=== PATIENT | male | born 1985 | race Caucasian/White ===

== ENCOUNTER 2019-01-14 10:06 | Emergency (ER) | payer OTHER, SELFPAY ==
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
[2019-01-14 10:21] VITALS: BP 129/75; PULSE 61; RESP 18; TEMP 36.3; O2SAT 94; BMI 26.4
== END 2019-01-14 10:40 | disposition home or self-care (01) ==
LOC: ED 10:31
PROVIDERS: Emergency Provider Emergency Medicine
DX: H72.91 Unspecified perforation of tympanic membrane, right ear (principal); Y04.2XXA Assault by strike against or bumped into by another person, initial encounter
CPT/HCPCS: 99282

== ENCOUNTER 2022-04-06 20:50 | Emergency (ER) | payer OTHER, SELFPAY ==
--- NOTE | 2022-04-06 21:11 | ED_ITS ---
HPI - Extremity Injury (Lower) General Chief Complaint: Extremity Injury, Lower Stated Complaint: Smushed left toe Time Seen by Provider: 04/06/22 20:54 History of Present Illness HPI Narrative: 36-year-old male nonsmoker with noncontributory medical history presents with family in the chief complaint of an accidental injury to his left 4th toe just prior to arrival. He was moving a ladder and accidentally set it on his foot and suffered a painful injury including bruising of his toe. He denies any numbness, tingling or weakness. Denies any bleeding or break in the skin. He denies other injury. His pain is worse when he ambulates or touches it and improves with rest. Patient History Medical History Patient denies medical problems Social History marital status: lives independently: Yes Smoking Status: Never smoker Smoking Status: Never smoker alcohol intake frequency: 0-2 drinks per day Substance Use Type: does not use Exam Narrative Exam Narrative: GEN: AOx3 and in mild distress EYES: Pupils are equal, round, and reactive to light and accommodation. Extraoccular muscles are intact bilaterally. There is no subconjunctival hemorrhage or exudate. CHEST: Lungs are clear to auscultation bilaterally and free of wheezes, rales, or rhonchi. Heart rate is regular rhythm, there are no murmurs, clicks, rubs, or gallops. There is no chest wall tenderness. ABD: Abdomen is soft and nontender. There is no guarding or rebound. Bowel sounds are normal in all 4 quadrants. There is no mass or organomegaly. EXT: Left 4th toe ecchymotic circumferentially, no subungual hematoma, closed, isolated and neurovascularly intact SKIN: Warm, pink, and dry. No erythema or rash Initial Vital Signs Initial Vital Signs: Vital Signs Temperature 98.4 F 04/06/22 21:13 Pulse Rate 80 04/06/22 21:13 Respiratory Rate 16 04/06/22 21:13 Blood Pressure 161/84 H 04/06/22 21:13 Pulse Oximetry 97 04/06/22 21:13 Oxygen Delivery Method 04/06/22 21:13 Procedures Orthopedic Splinting/Casting Injury #1: Side: left Lower Extremity Injury Location: toe Lower Extremity Immobilizer: post-op shoe Post splinting neuro exam: intact Post splinting vascular exam: intact Placed by: Nursing Course Orders Ordered: ED Orders 04/06/22 21:13 XR toe LT min 2V Stat Vital Signs Vital signs: Vital Signs - 8 hr 04/06/22 21:13 Temperature 98.4 F Pulse Rate 80 Respiratory Rate 16 Blood Pressure 161/84 H Pulse Oximetry 97 Oxygen Delivery Method Room Air MDM - Extremity Injury (Lower) Imaging Data Extremity x-ray #1: Radiologist's Impression: Close Toe X-Ray (Signed) Darrian Pham - 04/06/22 Launch?[address] [address] XRay Report Signed Patient: Zach Conley MR#: [id number] : 1985 Acct:[id number] Age/Sex: 36 / M Date of Service: 04/06/22 Loc: ED Accession Number: [id number] ?? Procedure: XR toe LT min 2V Ordering Provider: Shamir Neff D.O. PROCEDURE:? XR TOE LT MIN 2V ? INDICATIONS:? dropped ladder on 4th digit ? TECHNIQUE:? 2 views of the 4th toe(s) acquired.? ? COMPARISON:? None. ? FINDINGS:? ? Bones:? No dislocations.? No suspicious bony lesions.? On the straight frontal view there appears to be displacement of several bone margins laterally, involving the distal phalanx where overlying soft tissue swelling is prominent? ? Soft tissues:? No suspicious soft tissue densities.? ? IMPRESSION:? Prominent soft tissue swelling to the area of acute trauma with apparent lateral displaced thin bone fragments involving the 4th distal phalanx appear present. ? ? Dictated by: Darrian Pham M.D. on 04/06/2022 at 21:49 ? ? Approved by: Darrian Pham M.D. on 04/06/2022 at 21:51 ? Discharge Plan Departure Patient Disposition: Home Clinical Impression: Closed fracture of toe Instructions: DI for Toe Fracture Activity Restrictions/Additional Instructions: *You have been diagnosed with [left 4th toe fracture] *What to do: *Please continue to take your regular medications as directed. [x] Tylenol and occasional Motrin for pain *Please follow up with [Jania ] of [facility] in 2-3 days, call for an appointment. Let them know you were seen in the Emergency Department and that we ask that you be seen in follow up. We will electronically transmit a record of today's note if your PCP is in our system *Return to Emergency Department if you should have any new, worsening or concerning symptoms, such as [worsening pain, significant swelling, cold extremities, numbness, tingling, weakness or other bothersome symptoms Referrals: Jennie Dykes MD [Physician] - Visit Report Forms: Patient Portal/API
[2022-04-06 21:13] VITALS: BP 161/84; PULSE 80; RESP 16; TEMP 36.9; O2SAT 97; BMI 29.4
--- NOTE | 2022-04-06 21:13 | DI.RAD.S_ITS ---
PROCEDURE: XR TOE LT MIN 2V INDICATIONS: dropped ladder on 4th digit TECHNIQUE: 2 views of the 4th toe(s) acquired. COMPARISON: None. FINDINGS: Bones: No dislocations. No suspicious bony lesions. On the straight frontal view there appears to be displacement of several bone margins laterally, involving the distal phalanx where overlying soft tissue swelling is prominent Soft tissues: No suspicious soft tissue densities. IMPRESSION: Prominent soft tissue swelling to the area of acute trauma with apparent lateral displaced thin bone fragments involving the 4th distal phalanx appear present. Dictated by: Darrian Pham M.D. on 04/06/2022 at 21:49 Approved by: Darrian Pham M.D. on 04/06/2022 at 21:51
== END 2022-04-06 22:03 | disposition home or self-care (01) ==
PROVIDERS: Emergency Provider Emergency Medicine
DX: S92.532A Displaced fracture of distal phalanx of left lesser toe(s), initial encounter for closed fracture (principal); W22.8XXA Striking against or struck by other objects, initial encounter
CPT/HCPCS: 73660; 99281; 99283

== ENCOUNTER → 2022-10-25 11:30 | Outpatient (CLI) | payer OTHER, SELFPAY ==
--- NOTE | 2022-10-25 | DI.MRI.S_ITS ---
PROCEDURE: MR SHOULDER RT WO CON INDICATIONS: Impingement syndrome of right shoulder TECHNIQUE: Noncontrast oblique coronal T2 fast spin echo with fat saturation, oblique sagittal T1 spin echo and T2 fast spin echo with fat saturation, axial T1 spin echo and T2 fast spin echo with fat saturation through the shoulder. COMPARISON: None. FINDINGS: Image quality: Excellent. Rotator cuff: Low-grade articular and bursal surface partial thickness tear involving distal supraspinatus at its insertion on the humeral head is seen extending to musculotendinous junction. Distal infraspinatus and subscapularis tendons are intact. No full-thickness rotator cuff tendon rupture. Sagittal images demonstrate no significant rotator cuff muscle atrophy. Bones and bursae: No bone marrow contusions or fractures. Mild acromioclavicular joint osteoarthritic changes are seen with small downward osteophyte formation depressing the musculotendinous junction of supraspinatus. The acromion demonstrates conventional anatomy, without an os acromiale. Trace amount of subacromial subdeltoid bursal fluid is seen. Capsule and soft tissues: There is signal abnormality and contour irregularity involving superior anterior labrum at 12 to 2 o'clock position suggestive of superior anterior labral tear. The long head of the biceps tendon demonstrates normal location and morphology. The rotator interval appears normal, without fibrosis. The coracohumeral ligament is normal in thickness. IMPRESSION: 1. Low-grade articular and bursal surface partial thickness tear involving distal supraspinatus extending to musculotendinous junction. No full-thickness rotator cuff tendon rupture. 2. Mild acromioclavicular joint osteoarthritis. No fracture or dislocation. Trace amount of subacromial subdeltoid bursal fluid. 3. Finding is suggestive of superior anterior labral tear at 12 to 2 o'clock position. Dictated by: Tyrese Del Rio M.D. on 10/25/2022 at 12:41 Approved by: Tyrese Del Rio M.D. on 10/25/2022 at 12:46
== END ==
PROVIDERS: Referring Provider Orthopaedic Surgery; Visit Provider Orthopaedic Surgery
DX: M75.41 Impingement syndrome of right shoulder (principal); M75.111 Incomplete rotator cuff tear or rupture of right shoulder, not specified as traumatic; M19.011 Primary osteoarthritis, right shoulder
CPT/HCPCS: 73221

== ENCOUNTER 2023-02-13 09:23 | Day surgery (SDC) | payer OTHER, SELFPAY ==
[2023-02-05 13:30] VITALS: BMI 32.1
[2023-02-13] VITALS (7 sets, daily range): BP systolic 126–148; BP diastolic 79–90; PULSE 57–80; RESP 14–18; TEMP 36.2–36.6; O2SAT 94–97; BMI 32.1
[2023-02-13] MEDS: LACTATED RINGERS 1,000 ML 42 ML IV (10:19)
--- NOTE | 2023-02-13 11:02 | PM.PREOP ---
Pre-operative Note Interval Note History & Physical reviewed/Exam performed by Physician: Yes Changes to H&P: No
--- NOTE | 2023-02-13 12:21 | SUR.OPER ---
Beach chair with Skytron shoulder positioner. Lower body on padded OR bed. Head in foam padded head cradle, secured with straps. Non-operative arm secured <90 degrees abduction. Pillow under knees. Safety belt at thigh. Cloth tape over blanket over lower legs.
[2023-02-13] MEDS: LIDOCAINE 2% W/EPI INJ 20 ML INJ (12:30)
[2023-02-13] MEDS: SODIUM CHLORIDE IRRIG SOLUTION 3,000 ML, EPINEPHrine 1 MG IRR (12:31)
--- NOTE | 2023-02-13 12:44 | P.OP_ITS ---
Operative Date/Time/Diagnoses Date of procedure: 02/13/23 Time of procedure: 11:30 Pre-op diagnosis: Right SLAP tear as well as partial rotator cuff tear Post-op diagnosis: same Procedure & Clinicians Procedure: Right shoulder arthroscopic biceps tenodesis with extensive debridement and subacromial decompression. Same procedure as scheduled: Yes Indications: Slap tear with partial rotator cuff tear Surgeon: Paulo Christianson Hearing Aid Assembly Supervisor: Alan Lemus Anesthesia Type: General and Peripheral nerve block Operative Notes Findings: Slap tear as well as signs of tearing to the bicipital anchor. No sign of any arthritic changes to the glenohumeral joint. Some mild articular sided partial tearing to the rotator cuff. No sign of any high-grade partial tears. Synovitis and bursitis in the subacromial space with mild partial tearing involving the bursal aspect of the supraspinatus and infraspinatus. No sign of any significant AC joint arthritis. Closure Type: primary Applied: implant(s) (SwiveLock anchor Arthrex) Estimated Blood Loss (mL): 5 Procedure in detail: On date of service, Patient was met in the holding area. The operative site was signed and witnessed by the OR staff. The surgeries once again discussed with the patient and any remaining questions they had were answered fully. Patient was taken back to the operating theater and placed on the operating table in a supine position. Great care was taken to ensure that all bony prominences were properly padded. Patient was then placed into the beach chair position. The head and neck were properly positioned and secured. A timeout was performed verifying patient's name, procedure, and the operative site. The upper extremity was then prepped and draped in the normal sterile fashion. Previously, the bony anatomy and portal sites were marked out as well as injected with Marcaine with epinephrine. An 11 blade was used to make an incision in the posterior aspect of the shoulder. The camera was placed, and a diagnostic shoulder scope was performed. Findings listed above. Next under direct visualization, an anterior portal was established. A shaver was brought in anteriorly and a debridement of the glenohumeral joint was performed. Mainly focusing on some articular sided tearing of the supraspinatus. No sign of any high-grade partial tears. Shaver was then used to debride the labral tear cleaning up the the SLAP tear as well as the tearing to the bicipital anchor. Patient also has some degenerative tearing that was also debrided using the shaver. Patient had synovitis to the anterior aspect of the shoulder which was also debrided using the shaver. Using the anterior portal suture material was passed around the biceps tendon and. The suture was then passed through the eyelet and then pulled back through locking the suture around the biceps. This was then passed underneath the bi ceps tendon and then a pointed grasper was used to pinedo through the biceps tendon out and grab the suture and pull it through providing a loop as well as a cinching fixation of the proximal biceps. Once we were satisfied with the suture repair, the biceps was released at the superior labrum. Shaver was used once again to debride the bicipital anchor as well as any remaining tearing to the superior labrum. We then found a good insertion point just superior to the bicipital sling and the most superior aspect of the bicipital groove. This was done arthroscopically. Punch was used to make a hole and then the anchor was then used to tenodesis the suture into that hole providing a secure fixation of the proximal biceps. Shoulder was taken through range of motion and a probe was used to test the repair and there was no sign of any loosening. Camera was placed in both posterior and anterior portals to exam and bicep tendon as well as shoulder joint to make sure there was no additional debridement that needed to be performed. Next, camera was placed into the subacromial space and a lateral portal was established. Combination of the shaver and vapor Wand were used to debride out the synovitis and bursitis in the subacromial and subdeltoid space. This gave us good visualization of the bursal aspect of the rotator cuff and the shaver was then used to debride the mild partial tearing to the supraspinatus and infraspinatus. No sign of any high-grade partial tears or full-thickness tears. Bur was then used to do a subacromial decompression. Shoulder was taken through range of motion no sign of any residual impingement and no sign of any significant tearing to the rotator cuff. Patient's shoulder was then cleaned dried and dressed and patient was taken to the PACU in stable condition Complications: none Post-operative Condition: stable Disposition: PACU Plan for aftercare: Patient will follow our postoperative protocol for biceps tenodesis.
[2023-02-13] MEDS: LORazepam 2 MG/ML INJ 0.5 MG IV ×2 (13:00→13:08)
--- NOTE | 2023-02-13 18:45 | P.PCN_ITS ---
Peripheral Nerve Block Note Pre-Procedure Reason for block: Attending surgeon request/order for post-op pain management Pre-procedure checklist: Patient examined and chart reviewed, Risks, benefits, alternatives of block discussed, questions answered, Verification of anti- coagulation status, Site confirmed, Timeout performed and Standard ASA monitors applied Consent obtained from: Patient Procedure Date of procedure: 02/13/23 Start Time: 11:20 End Time: 11:25 Performed by: Natasha Harkins Sedation - enter dose in comment field: IV Midazolam (mg) (2mg) and IV Fentanyl (mcg) (100mcg) Location: Pre-Op Position: Supine Laterality: Right Sterile Technique: Sterile barrier maintained, Sterile gloves, Mask, Sterile drapes, U/S probe cover, Chloraprep and Betadine Skin Wheal: Lidocaine 2% mL: 1 Gauge: 27 Equipment Single injection - Needle brand, gauge, length: Single injection- Pajunk, 22G x 50mm Medications Medications - enter concentration (%) & mL in comment field: Ropivacaine (0.5%, 20mls) Incremental aspiration prior to injection: Yes Ultrasound Reason for Ultrasound: U/S guidance used for needle placement and U/S used to visualize spread of anesthetic Image printed/saved/archived: Yes Limited exam reveals no abnormal findings: Yes Vital signs VS: - 02/13/23 12:54 02/13/23 12:58 02/13/23 13:08 Temperature 97.1 F L Pulse Rate 80 70 68 Respiratory Rate 14 16 16 Blood Pressure 148/87 H 143/89 H 143/89 H Pulse Oximetry 95 94 96 Oxygen Delivery Method Room Air Room Air Room Air 02/13/23 13:20 02/13/23 13:23 02/13/23 13:03 Temperature 97.8 F 97.8 F Pulse Rate 71 71 74 Respiratory Rate 17 18 16 Blood Pressure 145/90 H 135/86 140/79 Pulse Oximetry 95 96 95 Oxygen Delivery Method Room Air Room Air Oxygen Delivery Method Room Air Events Nerve Block Events: Procedure uneventful
== END 2023-02-13 13:56 | disposition home or self-care (01) ==
PROVIDERS: Referring Provider Orthopaedic Surgery; Visit Provider Orthopaedic Surgery
PROC: (CPT 29805; principal; 2023-02-13 11:15)
DX: S43.431A Superior glenoid labrum lesion of right shoulder, initial encounter (principal); M75.111 Incomplete rotator cuff tear or rupture of right shoulder, not specified as traumatic; G89.18 Other acute postprocedural pain; M65.811 Other synovitis and tenosynovitis, right shoulder; M75.51 Bursitis of right shoulder
CPT/HCPCS: 29828; 29826; 29823; 64415; J0171; J1100; J2060; J2250; J2405; J2704; J3010

== ENCOUNTER 2023-03-08 09:57 | Emergency (ER) | payer OTHER, SELFPAY ==
[2023-03-08 10:30] VITALS: BP 141/79; PULSE 79; RESP 14; TEMP 36.5; O2SAT 99; BMI 29.9
--- NOTE | 2023-03-08 10:35 | DI.RAD.S_ITS ---
PROCEDURE: XR SHOULDER RT MIN 2V INDICATIONS: recent rotator cuff surgery, felt pop, increased pain + fall TECHNIQUE: 3 views of the shoulder were acquired. COMPARISON: [facility], CR, XR CHEST 1V, 03/08/2023, 10:52. [facility], CR, XR ELBOW RT MIN 3V, 03/08/2023, 10:40. FINDINGS: Bones: No fractures or dislocations. No suspicious bony lesions. Visualized ribs appear intact. Soft tissues: No suspicious soft tissue calcifications. The visualized lung demonstrates an unremarkable appearance. IMPRESSION: Plain film study within normal limits. Dictated by: Miko Cho M.D. on 03/08/2023 at 10:04 Approved by: Miko Cho M.D. on 03/08/2023 at 10:04
--- NOTE | 2023-03-08 10:35 | DI.RAD.S_ITS ---
PROCEDURE: XR ELBOW RT MIN 3V INDICATIONS: recent rotator cuff surgery, felt pop, increased pain + fall TECHNIQUE: 3 views of the elbow were acquired. COMPARISON: [facility], CR, XR CHEST 1V, 03/08/2023, 10:52. [facility], CR, XR SHOULDER RT MIN 2V, 03/08/2023, 10:40. FINDINGS: Bones: No fractures or dislocations. No suspicious bony lesions. Soft tissues: No elbow joint effusion. No suspicious soft tissue calcifications. IMPRESSION: Unremarkable plain films. Dictated by: Miko Cho M.D. on 03/08/2023 at 10:03 Approved by: Miko Cho M.D. on 03/08/2023 at 10:03
--- NOTE | 2023-03-08 10:46 | DI.RAD.S_ITS ---
PROCEDURE: XR CHEST 1V INDICATIONS: chest pain TECHNIQUE: One view of the chest was acquired. COMPARISON: [facility], CR, XR SHOULDER RT MIN 2V, 03/08/2023, 10:40. [facility], CR, XR ELBOW RT MIN 3V, 03/08/2023, 10:40. FINDINGS: Surgical changes and devices: None. Lungs and pleura: An incomplete inspiratory result is noted, causing a crowded appearance to the lung markings. No focal infiltrates are seen. No pneumothorax or significant pleural effusions are seen. Mediastinum: Mediastinal contours appear normal. Heart size is normal. Bones and chest wall: No suspicious bony lesions. Overlying soft tissues appear unremarkable. IMPRESSION: Limited portable chest examination, without a significant cardiopulmonary abnormality identified. Dictated by: Miko Cho M.D. on 03/08/2023 at 10:04 Approved by: Miko Cho M.D. on 03/08/2023 at 10:05
[2023-03-08 11:21] LABS: Add Manual Diff / Slide Review NO; Basophils Absolute Auto 100 /uL (0-100); Basophils Percent Auto 0.7 % (0-2); Eosinophils Absolute Auto 100 /uL (0-450); Eosinophils Percent Auto 1.3 % (2-4); Hematocrit 43.8 % (41-53); Lymphocytes Absolute Auto 1700 /uL (1100-4500); Lymphocytes Percent Auto 17.2 % (25-40); Mean Corpuscular HGB Conc 34.4 % (30-36); Mean Corpuscular Hemoglobin 29.9 PG (26-34); Mean Corpuscular Volume 87.1 fL (80-100); Monocytes Absolute Auto 600 /uL (0-900); Monocytes Percent Auto 6.5 % (3-14); Neutrophils Absolute Auto 7500 /uL (1500-7000); Neutrophils Percent Auto 74.3 % (50-75); Platelet Count 322 X10^3/uL (150-400); Red Blood Cell Count 5.03 X10^6/uL (4.5-5.9)
[2023-03-08 11:30] LABS: Prothrombin Time 11.7 SECONDS (10.1-12.7)
[2023-03-08 11:33] LABS: PTT Partial Thromboplastin Tim 27 SECONDS (26-36)
[2023-03-08 11:35] LABS: Alanine Aminotransferase 36 IU/L (<50); Albumin 4.3 g/dL (3.5-5.0); Albumin Globulin Ratio 1.3 (1.0-2.8); Alkaline Phosphatase 45 U/L (38-126); Aspartate Aminotransferase 24 IU/L (17-59); BUN Creatinine Ratio 17.1 (6-22); Bilirubin Total 0.5 mg/dL (0.2-1.3); Blood Urea Nitrogen 13 mg/dL (9-20); Calcium 9.6 mg/dL (8.4-10.2); Carbon Dioxide 28 mmol/L (22-32); Chloride 103 mmol/L (98-107); Creatine Kinase 75 U/L (55-170); Estimated Glomerular Filt Rate > 60 mL/min (>60); Globulin 3.4 g/dL (1.7-4.1); Glucose 103 mg/dL (70-100); HEMOLYSIS < 15 (0-50); Lipase 70 U/L (23-300); Sodium 138 mmol/L (137-145); Total Protein 7.7 g/dL (6.3-8.2)
[2023-03-08 11:47] LABS: Troponin I < 0.012 ng/mL (0.01-0.034)
[2023-03-08 12:47] VITALS: BP 117/70; PULSE 60; RESP 12; O2SAT 99
--- NOTE | 2023-03-08 13:53 | ED.GENADULT ---
HPI - General Adult General Chief complaint: Syncope Stated complaint: passed out LOC about 5-10 secs Time Seen by Provider: 03/08/23 13:53 Source: patient Mode of arrival: Ambulatory History of Present Illness HPI narrative: 37-year-old gentleman with recent rotator cuff repair and recent diagnosis of hypertension started on lisinopril 10 mg in the evening. This morning he was in the shower became dizzy and had near syncopal episode where he fell. He did not hit his head. He is concerned that he may have re-injured his shoulder and he comes in for further evaluation. He is in a postsurgical rotator cuff splint. He has not recently had any fevers, cough, chills. No vomiting or diarrhea. He has been checking blood pressures after starting the lisinopril and they all seem absolutely appropriate. Related Data Home Medications Medication Instructions Recorded Confirmed famotidine 20 mg tablet 20 mg PO DAILY 02/05/23 02/13/23 Previous Rx's Medication Instructions Recorded hydroxyzine pamoate 25 mg capsule 25 mg PO TID-QID PRN spasms #60 02/13/23 (Vistaril) caps oxycodone-acetaminophen 5 mg-325 2 tab PO Q4-6H PRN pain #60 tabs 02/13/23 mg tablet (Percocet) Allergies Allergy/AdvReac Type Severity Reaction Status Date / Time No Known Drug Allergies Allergy Verified 02/13/23 10:07 Review of Systems Review of Systems Narrative: Pertinent positive and negative findings as per HPI Patient History Medical History Patient denies medical problems Surgical History History of photorefractive keratectomy (PRK) H/O vasectomy Hx of surgical procedure Social History marital status: household members: family lives independently: Yes Smoking Status: Never smoker alcohol intake: never Smoking Status: Never smoker alcohol intake frequency: 0-2 drinks per day Substance Use Type: does not use Exam Initial Vital Signs Initial Vital Signs: Vital Signs Temperature 97.7 F 03/08/23 10:30 Pulse Rate 79 03/08/23 10:30 Respiratory Rate 14 03/08/23 10:30 Blood Pressure 141/79 H 03/08/23 10:30 Pulse Oximetry 99 03/08/23 10:30 Oxygen Delivery Method Room Air 03/08/23 10:30 General: Alert appropriate in no acute distress ENT: No obvious trauma Respiratory: Able to speak in full sentences, no obvious respiratory distress Skin: No obvious rashes, warm and dry Neurologic: Grossly intact no obvious asymmetries or abnormalities Psych: appropriate insight and affect, cooperative Right extremity: Appropriate postsurgical findings he is in a postsurgical sling. Neurovascularly intact Course Orders Ordered: ED Orders 03/08/23 10:35 XR elbow RT min 3V Stat XR shoulder RT min 2V Stat EKG-12 Lead Stat 03/08/23 10:46 XR chest 1V Stat 03/08/23 11:15 Complete Blood Count AUTO DIFF Stat Comprehensive Metabolic Panel Stat Lipase Stat Magnesium Stat PTT Partial Thromboplastin [place] Stat Prothrombin Time INR Stat Troponin & CK Cardiac Panel Stat Vital Signs Vital signs: Vital Signs - 8 hr 03/08/23 10:30 03/08/23 12:47 Temperature 97.7 F Pulse Rate 79 60 Respiratory Rate 14 12 Blood Pressure 141/79 H 117/70 Pulse Oximetry 99 99 Oxygen Delivery Method Room Air Room Air Medical Decision Making Lab Data 03/08/23 11:15 03/08/23 11:15 Labs: Lab Results 03/08/23 Range/Units 11:15 WBC 10.0 (4.5-11.0) X10^3/uL RBC 5.03 (4.5-5.9) X10^6/uL Hgb 15.0 (13.5-17.5) g/dL Hct 43.8 (41-53) % MCV 87.1 (80-100) fL MCH 29.9 (26-34) PG MCHC 34.4 (30-36) % RDW 14.0 (11.6-14.8) % Plt Count 322 (150-400) X10^3/uL Neut % (Auto) 74.3 (50-75) % Lymph % (Auto) 17.2 L (25-40) % Douglas % (Auto) 6.5 (3-14) % Eos % (Auto) 1.3 L (2-4) % Baso % (Auto) 0.7 (0-2) % Neut # (Auto) 7500 H (7281-6557) /uL Lymph # (Auto) 1700 (0505-6787) /uL Douglas # (Auto) 600 (0-900) /uL Eos # (Auto) 100 (0-450) /uL Baso # (Auto) 100 (0-100) /uL PT 11.7 (10.1-12.7) SECONDS INR 1.0 (0.9-1.3) APTT 27 (26-36) SECONDS Sodium 138 (137-145) mmol/L Potassium 4.0 (3.4-5.1) mmol/L Chloride 103 (98-107) mmol/L Carbon Dioxide 28 (22-32) mmol/L BUN 13 (9-20) mg/dL Creatinine 0.76 (0.66-1.25) mg/dL Estimated GFR > 60 (>60) mL/min BUN/Creatinine Ratio 17.1 (6-22) Glucose 103 H (70-100) mg/dL Calcium 9.6 (8.4-10.2) mg/dL Magnesium 2.0 (1.6-2.3) mg/dL Total Bilirubin 0.5 (0.2-1.3) mg/dL AST 24 (17-59) IU/L ALT 36 (<50) IU/L Alkaline Phosphatase 45 (38-126) U/L Total Creatine Kinase 75 (55-170) U/L Troponin I < 0.012 (0.01-0.034) ng/mL Total Protein 7.7 (6.3-8.2) g/dL Albumin 4.3 (3.5-5.0) g/dL Globulin 3.4 (1.7-4.1) g/dL Albumin/Globulin Ratio 1.3 (1.0-2.8) Lipase 70 (23-300) U/L [facility] Narrative Medical decision making narrative: CC: Near-syncope with fall Complicating co-morbidities: Recent right rotator cuff surgery Data collected from: patient, Differential considered: Vasovagal syncope, cardiac syncope, blood loss, injury to the shoulder Exam documented above, pertinent findings include: Normal postoperative exam of his right shoulder and upper extremity. No obvious new injuries. Remainder of exam is benign Lab Test results independently reviewed as above. Pertinent findings: CBC is unremarkable PT, PTT and INR are all appropriate Chemistries show no obvious abnormalities Independently reviewed EKG Sinus rhythm at a rate of 67. Normal intervals, normal axis. No acute ischemic changes Imaging studies independently reviewed: Chest, shoulder and elbow x-ray are all unremarkable Discussion: 37-year-old man with a near syncopal episode falling in the shower secondary to this. No immediate trauma, no head injury. No evidence of internal bleeding. Findings reviewed and reassurance is given. I do not suspect any other significant pathology at this time. Blood pressure was 125/80 at time of discharge. He had questions about continuing his 10 mg of lisinopril at night which I believe is appropriate particularly given the blood pressure readings that he has from home which are all consistently in the 120-130 range and 80-90 range diastolic. Questions are answered and he is safe for discharge Discharge Plan Departure Patient Disposition: Home Clinical Impression: Vasovagal syncope Hypertension Qualifiers: Hypertension type: primary hypertension Qualified Code(s): I10 - Essential (primary) hypertension Instructions: DI for Syncope in Adults (Fainting) Activity Restrictions/Additional Instructions: Thank you for coming in today Your x-rays of your elbow shoulder and chest are all unremarkable. You did not do any damage to the rotator cuff you just had repaired. I suspect that this episode of passing out this morning was your blood pressure going low due to standing in the shower. Your blood pressure at time of discharge was appropriate and I do think that continuing your lisinopril 10 mg at nighttime is appropriate as well. Please do follow-up with your primary care provider regarding your blood pressure. If you have another episode of passing out or nearly passing out, it would be appropriate to return to the emergency department. The next step in the workup would be more thorough evaluation of heart, heart rhythm and perhaps even CT scan of your brain. Prescriptions: No Action famotidine 20 mg Tablet 20 mg PO DAILY Patient Comments: unsure of dose oxycodone-acetaminophen [Percocet] 5-325 mg tablet 2 tab PO Q4-6H PRN (Reason: pain) Qty: 60 0RF hydroxyzine pamoate [Vistaril] 25 mg capsule 25 mg PO TID-QID PRN (Reason: spasms) Qty: 60 0RF Referrals: ProviderJm [Primary Care Provider] - Stand Alone Forms: Patient Portal/API
[2023-03-08 14:11] VITALS: BP 122/78; PULSE 70; RESP 12; O2SAT 99
== END 2023-03-08 14:13 | disposition home or self-care (01) ==
PROVIDERS: Emergency Provider Emergency Medicine
DX: R55 Syncope and collapse (principal); I10 Essential (primary) hypertension; M25.511 Pain in right shoulder; R07.9 Chest pain, unspecified
CPT/HCPCS: 36415; 71045; 73030; 73080; 80053; 82550; 83690; 83735; 84484; 85025; 85610; 85730; 93005; 99283; 99284

== ENCOUNTER → 2023-05-16 08:02 | Outpatient (CLI) | payer OTHER, SELFPAY ==
--- NOTE | 2023-05-16 | DI.RAD.S_ITS ---
PROCEDURE: FL BARIUM SWALLOW INDICATIONS: Gastro-esophageal reflux disease COMPARISON: [facility], CR, XR CHEST 1V, 03/08/2023, 10:52. FINDINGS: Function: There is normal esophageal peristalsis. No elicited gastroesophageal reflux. There is normal transit of a calibrated barium tablet through the esophagus into the stomach. Morphology: Air-contrast images demonstrate normal mucosal morphology. Single contrast views show no esophageal strictures, extrinsic mass effects, or diverticula. Limited images of the stomach demonstrate normal appearance. IMPRESSION: Normal barium swallow study. Dictated by: Manfred Bahena M.D. on 05/16/2023 at 13:40 Approved by: Manfred Bahena M.D. on 05/16/2023 at 13:50
== END ==
DX: K21.9 Gastro-esophageal reflux disease without esophagitis (principal)
CPT/HCPCS: 74220